=== PATIENT | male | born 1945 ===

== ENCOUNTER 2023-07-03 10:00 | Inpatient (IN) | payer OTHER ==
[~2023-07-03] VITALS: Ht 152.4 cm; Wt 74.8 kg
[2023-07-06] MEDS ORDERED: MILLIPRED5 MG (14:56)
[2023-07-06] MEDS ORDERED: TAMS0.4C (14:56)
[2023-07-06] MEDS ORDERED: PROSCAR5 MG (14:57)
[2023-07-10] MEDS ORDERED: CEFTRIAXONE SODIUM 2,000 MG VIAL ONE (07:25)
[2023-07-10] MEDS ORDERED: METRONIDAZOLE/SODIUM CHLORIDE 500 MG/100 ML PIGGYBACK IV ONE ×3 (07:25→16:01)
[2023-07-10] MEDS ORDERED: PREDNISONE10 M2 (07:53)
[2023-07-10] MEDS ORDERED: RESTORIL30 MG (07:53)
[2023-07-10] MEDS ORDERED: PENTOXIFYLLINE400 MG (07:54)
[2023-07-10] MEDS ORDERED: CARVEDILOL3.125 M1 (07:54)
[2023-07-10] MEDS ORDERED: BUPIVACAINE HCL/PF 0.5% 30ML ML ONE (08:20)
[2023-07-10] MEDS ORDERED: LIDOCAINE HCL 1%/Epi 20ML VIAL IJ ONE ×2 (08:21→09:45)
[2023-07-10] MEDS ORDERED: BUPIVACAINE HCL 0.5% 50ML VIAL IJ ONE (09:45)
[2023-07-10] MEDS ORDERED: CEFTRIAXONE SODIUM 2,000 MG VIAL IV ONE (09:45)
[2023-07-10] MEDS ORDERED: RINGERS SOLUTION,LACTATED 1,000 ML IV SCH (11:00)
[2023-07-10] MEDS ORDERED: OxyCODONE HCL 5 MG TABLET (ROXICODONE) PO PRN (11:00)
[2023-07-10] MEDS ORDERED: MORPHINE SULFATE 4 MG/ML CARTRIDGE IV PRN (11:00)
[2023-07-10] MEDS ORDERED: ONDANSETRON HCL 2 MG/ML VIAL IV PRN (11:00)
[2023-07-10] MEDS ORDERED: LACTOBACILLUS ACIDOPHILUS 1 CAP CAP PO SCH (11:01)
[2023-07-10] MEDS ORDERED: TAMSULOSIN HCL 0.4 MG CAP PO SCH (11:01)
[2023-07-10] MEDS ORDERED: ACETAMINOPHEN 500 MG GEL..CAP PO SCH (12:00)
[2023-07-10] MEDS ORDERED: HYOSCYAMINE SULFATE 0.125 MG TAB.SUBL SL SCH (13:00)
[2023-07-10] MEDS ORDERED: HYOSCYAMINE SULFATE 0.125 MG TAB.SUBL ONE (16:00)
[2023-07-10] MEDS ORDERED: GABAPENTIN 300 MG CAPSULE PO ONE (16:00)
[2023-07-10] MEDS ORDERED: GABAPENTIN 300 MG CAPSULE PO SCH (17:00)
[2023-07-10] MEDS ORDERED: LEVALBUTEROL HCL 0.63 MG/3 ML SOLUTION IH SCH (17:00)
[2023-07-10] MEDS ORDERED: METRONIDAZOLE/SODIUM CHLORIDE 500 MG/100 ML PIGGYBACK IV SCH (17:00)
[2023-07-10] MEDS ORDERED: LEVALBUTEROL HCL 0.63 MG/3 ML SOLUTION IH ONE (17:08)
[2023-07-10] MEDS ORDERED: ENALAPRILAT DIHYDRATE 1.25 MG/ML VIAL IV ONE (18:26)
[2023-07-10] MEDS ORDERED: ACETAMINOPHEN 500 MG GEL..CAP PO ONE (19:00)
[2023-07-10] MEDS ORDERED: CIPROFLOXACIN IN 5 % DEXTROSE 400 MG/200 ML PIGGYBAG IV SCH (21:00)
[2023-07-10] MEDS ORDERED: FAMOTIDINE/PF 20 MG/2 ML VIAL IV PUSH SCH (21:00)
[2023-07-11 06:47] LABS: HEMATOCRIT 42.5 % (39.0-48.0); MEAN CELL VOLUME 88.3 fL (80.0-100.00); MEAN CORPUSCULAR HGB CONC 32.8 g/dl (32.0-36.0); PLATELET COUNT 154 K/uL (150-450); RED BLOOD COUNT 4.82 M/uL (4.00-6.00); RED CELL DISTRIBUTION WIDTH 14.4 % (11.5-14.5)
[2023-07-11 07:41] LABS: ALBUMIN 2.7 gm/dL (3.4-5.0); CALCIUM 8.2 mg/dL (8.5-10.1); GFR 72.46; MAGNESIUM 1.8 mg/dL (1.8-2.4); PHOSPHOROUS 3.5 mg/dL (2.5-4.9); POTASSIUM 5.49 mEq/L (3.5-5.1)
[2023-07-11] MEDS ORDERED: ENOXAPARIN SODIUM 40 MG/0.4 ML SYRINGE SUBCUTANEO SCH (17:00)
[2023-07-12 07:38] LABS: ALBUMIN 2.4 gm/dL (3.4-5.0); CALCIUM 8.7 mg/dL (8.5-10.1); CREATININE SERUM 0.78 mg/dL (0.70-1.30); GFR 96.51; MAGNESIUM 2.3 mg/dL (1.8-2.4); PHOSPHOROUS 2.1 mg/dL (2.5-4.9); POTASSIUM 5.11 mEq/L (3.5-5.1)
[2023-07-12 08:59] LABS: HEMATOCRIT 38.1 % (39.0-48.0); HEMOGLOBIN 12.7 g/dL (13-16.00); MEAN CELL VOLUME 86.7 fL (80.0-100.00); MEAN CORPUSCULAR HEMOGLOBIN 28.8 pg (27.00-32.0); MEAN CORPUSCULAR HGB CONC 33.3 g/dl (32.0-36.0); RED CELL DISTRIBUTION WIDTH 14.6 % (11.5-14.5)
[2023-07-12] MEDS ORDERED: ENOXAPARIN SODIUM 40 MG/0.4 ML SYRINGE SUBCUTANEO SCH (09:00)
[2023-07-12 09:09] LABS: PLATELET COUNT 120 K/uL (150-450)
[2023-07-12 12:43] LABS: ABG PH 7.448 (7.35-7.45); ABG pCO2 44.4 mmHg (35-45)
[2023-07-12 12:44] LABS: ABG PO2 70.3 mmHg (80-100); BASE EXCESS 5.2 mmol/l; SaO2 94.9 %; Tco2 31.4 mmol/l; o2 21 %
[2023-07-12 12:45] LABS: allen test SATISFACTORY; puncture site RADIAL LEFT
[2023-07-12] MEDS ORDERED: LEVALBUTEROL HCL 0.63 MG/3 ML SOLUTION IH SCH (17:00)
[2023-07-12] MEDS ORDERED: LORazepam 0.5 MG TABLET PO ONE (23:00)
[2023-07-13 07:49] LABS: HEMATOCRIT 36.6 % (39.0-48.0); HEMOGLOBIN 12.1 g/dL (13-16.00); MEAN CELL VOLUME 86.1 fL (80.0-100.00); MEAN CORPUSCULAR HEMOGLOBIN 28.5 pg (27.00-32.0); MEAN CORPUSCULAR HGB CONC 33.1 g/dl (32.0-36.0); PLATELET COUNT 153 K/uL (150-450); RED BLOOD COUNT 4.25 M/uL (4.00-6.00); RED CELL DISTRIBUTION WIDTH 14.4 % (11.5-14.5)
[2023-07-13 08:17] LABS: ALBUMIN 2.3 gm/dL (3.4-5.0); BILIRUBIN TOTAL 0.85 mg/dL (0.3-1.2); CALCIUM 9.2 mg/dL (8.5-10.1); CREATININE SERUM 0.81 mg/dL (0.70-1.30); GFR 92.4; GLOBULINA 2.9 G/DL (2.4-3.5); POTASSIUM 3.57 mEq/L (3.5-5.1); TOTAL PROTEIN 5.2 gm/dL (6.4-8.2)
[2023-07-13] MEDS ORDERED: PANTOPRAZOLE SODIUM 40 MG/VIAL VIAL IV PUSH STA ×2 (11:23)
[2023-07-13] MEDS ORDERED: CARVEDILOL 3.125 MG TABLET PO SCH (13:12)
[2023-07-13] MEDS ORDERED: FINASTERIDE 5 MG TABLET PO SCH (13:13)
[2023-07-13] MEDS ORDERED: FUROsemide 20 MG/2 ML VIAL IV SCH (13:14)
[2023-07-13] MEDS ORDERED: METHYLPREDNISOLONE SOD SUCC 40 MG VIAL IV SCH (15:47)
[2023-07-13] MEDS ORDERED: PANTOPRAZOLE SODIUM 40 MG/VIAL VIAL IV PUSH SCH (21:00)
[2023-07-13] MEDS ORDERED: TEMAZEPAM 15 MG CAPSULE PO SCH (21:00)
[2023-07-14 06:39] LABS: ABG PH 7.433 (7.35-7.45); ABG pCO2 48.2 mmHg (35-45); BASE EXCESS 6.1 mmol/l; BICARBONATE 31.5 mmol/l (23-25); SaO2 98.9 %
[2023-07-14 06:44] LABS: allen test SATISFACTORY; o2 50 %; puncture site RADIAL RIGHT
[2023-07-14] MEDS ORDERED: PIPERACILLIN/TAZOBACTAM SODIUM 3.375 GM VIAL IV SCH (06:56)
[2023-07-14 07:29] LABS: HEMATOCRIT 34.5 % (39.0-48.0); HEMOGLOBIN 11.3 g/dL (13-16.00); MEAN CELL VOLUME 87.4 fL (80.0-100.00); MEAN CORPUSCULAR HEMOGLOBIN 28.7 pg (27.00-32.0); MEAN CORPUSCULAR HGB CONC 32.8 g/dl (32.0-36.0); PLATELET COUNT 169 K/uL (150-450); RED BLOOD COUNT 3.95 M/uL (4.00-6.00); RED CELL DISTRIBUTION WIDTH 14.6 % (11.5-14.5)
[2023-07-14 08:22] LABS: ALBUMIN 2.2 gm/dL (3.4-5.0); BILIRUBIN TOTAL 0.93 mg/dL (0.3-1.2); CALCIUM 8.6 mg/dL (8.5-10.1); CREATININE SERUM 0.76 mg/dL (0.70-1.30); GFR 99.45; MAGNESIUM 2.4 mg/dL (1.8-2.4); PHOSPHOROUS 3.3 mg/dL (2.5-4.9); POTASSIUM 3.6 mEq/L (3.5-5.1); TOTAL PROTEIN 5.2 gm/dL (6.4-8.2)
[2023-07-14] MEDS ORDERED: LORazepam 2 MG/ML VIAL IV SCH (10:14)
[2023-07-14 10:50] LABS: ABG PH 7.536 (7.35-7.45); ABG PO2 188.2 mmHg (80-100); ABG pCO2 34.7 mmHg (35-45); BASE EXCESS 6.3 mmol/l; BICARBONATE 28.8 mmol/l (23-25); SaO2 99.8 %; Tco2 29.8 mmol/l
[2023-07-14 10:51] LABS: allen test SATISFACTORY; o2 50 %; puncture site RADIAL RIGHT
[2023-07-14] MEDS ORDERED: PROPOFOL 100 ML IV SCH (13:15)
[2023-07-15 06:54] LABS: HEMATOCRIT 30.5 % (39.0-48.0); HEMOGLOBIN 10.2 g/dL (13-16.00); MEAN CELL VOLUME 86.6 fL (80.0-100.00); MEAN CORPUSCULAR HEMOGLOBIN 28.9 pg (27.00-32.0); MEAN CORPUSCULAR HGB CONC 33.4 g/dl (32.0-36.0); PLATELET COUNT 137 K/uL (150-450); RED BLOOD COUNT 3.52 M/uL (4.00-6.00); RED CELL DISTRIBUTION WIDTH 14.3 % (11.5-14.5)
[2023-07-15 07:23] LABS: BILIRUBIN TOTAL 1.08 mg/dL (0.3-1.2); CALCIUM 8.3 mg/dL (8.5-10.1); CREATININE SERUM 0.71 mg/dL (0.70-1.30); GFR 107.58; GLOBULINA 2.8 G/DL (2.4-3.5); MAGNESIUM 2.3 mg/dL (1.8-2.4); PHOSPHOROUS 2.6 mg/dL (2.5-4.9); TOTAL PROTEIN 4.8 gm/dL (6.4-8.2)
[2023-07-15 07:31] LABS: POTASSIUM 2.7 mEq/L (3.5-5.1)
[2023-07-15 08:46] LABS: ABG PH 7.444 (7.35-7.45); ABG PO2 135.5 mmHg (80-100); ABG pCO2 50.4 mmHg (35-45); BASE EXCESS 8.1 mmol/l; BICARBONATE 33.7 mmol/l (23-25); SaO2 99.2 %; Tco2 35.3 mmol/l
[2023-07-15 08:47] LABS: ABG PH 7.402 (7.35-7.45); ABG pCO2 58.6 mmHg (35-45)
[2023-07-15 08:47] LABS: allen test SATISFACTORY; o2 50 %; puncture site RADIAL RIGHT
[2023-07-15 08:48] LABS: ABG PO2 91.6 mmHg (80-100); BASE EXCESS 8.6 mmol/l; BICARBONATE 35.6 mmol/l (23-25); SaO2 97.3 %; Tco2 37.4 mmol/l; o2 40 %
[2023-07-15 08:49] LABS: allen test SATISFACTORY; puncture site RADIAL LEFT
[2023-07-15] MEDS ORDERED: POTASSIUM CHLORIDE IN WATER 40 MEQ/100 ML PIGGYBAG IV SCH (09:03)
[2023-07-15] MEDS ORDERED: IPRATROPIUM BROMIDE 0.5 MG/2.5 ML AMPUL.NEB IH SCH (10:24)
[2023-07-15] MEDS ORDERED: METHYLPREDNISOLONE SOD SUCC 40 MG VIAL IV SCH (13:00)
[2023-07-16] MEDS ORDERED: PANTOPRAZOLE SODIUM 40 MG/VIAL VIAL IV PUSH SCH (05:31)
[2023-07-16] MEDS ORDERED: CHLORHEXIDINE GLUCONATE 15ML BRUSH KIT MM SCH (05:32)
[2023-07-16] MEDS ORDERED: POLYVINYL ALCOHOL 15 ML DROPS OP SCH (05:32)
[2023-07-16] MEDS ORDERED: RACEPINEPHRINE HCL 0.5 ML AMPUL IH ONE (08:34)
[2023-07-16 09:27] LABS: ABG PH 7.476 (7.35-7.45); ABG pCO2 45.2 mmHg (35-45)
[2023-07-16 09:28] LABS: BASE EXCESS 7.9 mmol/l; BICARBONATE 32.6 mmol/l (23-25); SaO2 97.8 %; allen test SATISFACTORY; o2 40 %; puncture site RADIAL LEFT
[2023-07-16 09:55] LABS: ABG PH 7.497 (7.35-7.45); ABG PO2 64.7 mmHg (80-100); ABG pCO2 42.6 mmHg (35-45)
[2023-07-16 09:56] LABS: BASE EXCESS 8.2 mmol/l; BICARBONATE 32.3 mmol/l (23-25); SaO2 94.6 %; Tco2 33.6 mmol/l; allen test SATISFACTORY; o2 35 %; puncture site RADIAL LEFT
[2023-07-16] MEDS ORDERED: MEPERIDINE HCL/PF 25 MG/ML VIAL IV PRN (10:15)
[2023-07-16] MEDS ORDERED: MEROPENEM 500 MG/VIAL VIAL IV SCH (12:03)
[2023-07-16] MEDS ORDERED: AA 5 %/CALCIUM/LYTES/DEXT 20 % 2,000 ML CENTRAL SCH (17:00)
[2023-07-17] MEDS ORDERED: DEXTROSE 50 % IN WATER 0.5 G/ML DISP.SYRIN IV PRN (07:00)
[2023-07-17] MEDS ORDERED: INSULIN LISPRO 1,000 UNIT/10 ML UNITS SUBCUTANEO PRN ×2 (07:00→20:15)
[2023-07-17] MEDS ORDERED: METHYLPREDNISOLONE SOD SUCC 40 MG VIAL IV SCH (09:00)
[2023-07-17] MEDS ORDERED: FLUCONAZOLE IN NACL,ISO-OSM 400 MG/200 ML PIGGYBAG IV ONE (12:30)
[2023-07-17] MEDS ORDERED: VANCOMYCIN HCL 1,000 MG VIAL IV SCH (17:00)
[2023-07-17] MEDS ORDERED: INSULIN NPH HUMAN ISOPHANE 1,000 UNITS/10 ML UNITS SUBCUTANEO SCH (21:00)
[2023-07-18 07:40] LABS: HEMATOCRIT 34.6 % (39.0-48.0); HEMOGLOBIN 11.2 g/dL (13-16.00); MEAN CELL VOLUME 88.9 fL (80.0-100.00); MEAN CORPUSCULAR HEMOGLOBIN 28.9 pg (27.00-32.0); MEAN CORPUSCULAR HGB CONC 32.5 g/dl (32.0-36.0); PLATELET COUNT 157 K/uL (150-450); RED BLOOD COUNT 3.89 M/uL (4.00-6.00); RED CELL DISTRIBUTION WIDTH 14.7 % (11.5-14.5)
[2023-07-18 08:03] LABS: ALBUMIN 1.6 gm/dL (3.4-5.0); BILIRUBIN TOTAL 0.24 mg/dL (0.3-1.2); CALCIUM 8.5 mg/dL (8.5-10.1); CREATININE SERUM 0.52 mg/dL (0.70-1.30); GFR 154.1; GLOBULINA 3.1 G/DL (2.4-3.5); MAGNESIUM 2.7 mg/dL (1.8-2.4); PHOSPHOROUS 2.6 mg/dL (2.5-4.9); POTASSIUM 3.93 mEq/L (3.5-5.1); TOTAL PROTEIN 4.7 gm/dL (6.4-8.2)
[2023-07-18 08:08] LABS: C-REACTIVE PROTEIN 33.3 MG/DL (0.00-0.29)
[2023-07-18] MEDS ORDERED: FLUCONAZOLE IN NACL,ISO-OSM 200 MG/100 ML PIGGYBAG IV SCH (12:00)
[2023-07-18] MEDS ORDERED: INSULIN NPH HUMAN ISOPHANE 1,000 UNITS/10 ML UNITS SUBCUTANEO SCH (21:00)
[2023-07-20] MEDS ORDERED: DIATRIZOATE MEGLUMINE, SODIUM 30 ML BOTTLE PO ONE (06:00)
[2023-07-20 06:32] LABS: HEMATOCRIT 31.3 % (39.0-48.0); HEMOGLOBIN 10.4 g/dL (13-16.00); MEAN CELL VOLUME 86.8 fL (80.0-100.00); MEAN CORPUSCULAR HEMOGLOBIN 28.7 pg (27.00-32.0); MEAN CORPUSCULAR HGB CONC 33.1 g/dl (32.0-36.0); PLATELET COUNT 176 K/uL (150-450); RED CELL DISTRIBUTION WIDTH 14.5 % (11.5-14.5)
[2023-07-20 06:50] LABS: INR 1.02; PARTIAL THROMBOPLASTIN TIME 27.5 SECONDS (22.0-34.0); PROTHROMBIN TIME 10.7 SECONDS (9.0-11.5)
[2023-07-20 07:12] LABS: ALBUMIN 1.5 gm/dL (3.4-5.0); ALKALINE PHOSPHATASE 89 U/L (50-136); ALT/SGPT 89 U/L (12-78); ANION GAP 3 (10.0-20.0); AST/SGOT 106 U/L (15-37); BILIRUBIN TOTAL 0.35 mg/dL (0.3-1.2); BILIRUBIN,CONJUGATED < 0.10 mg/dL (0.0-0.2); BILIRUBIN,UNCONJUGATED 0.25 mg/dL (0.0-0.6); BLOOD UREA NITROGEN 32 mg/dL (7-18); BUN CREA RATIO 65 (7.0-25.0); CARBON DIOXIDE 39 mEq/L (21-32); CHLORIDE 106 mmol/L (98-107); CREATININE SERUM 0.49 mg/dL (0.70-1.30); GFR 165.04; GLOBULINA 3.3 G/DL (2.4-3.5); POTASSIUM 3.81 mEq/L (3.5-5.1); SODIUM 144 mmol/L (136-145); TOTAL PROTEIN 4.8 gm/dL (6.4-8.2)
[2023-07-20 07:34] LABS: GLUCOSE FASTING 256 mg/dL (65-100); LDL 49 mg/dl (0-130); OSMOLALITY SERUM 302 MOSM/KG (275-295); VLDL 60 (0-39)
[2023-07-20 07:35] LABS: CHOLESTEROL 120 mg/dL (0-200); TRIGLYCERIDES 303 mg/dL (0-150)
[2023-07-20] MEDS ORDERED: PREDNISONE 10 MG TABLET PO SCH (09:00)
[2023-07-20 09:36] LABS: HDL 10 mg/dl (40-60)
[2023-07-20] MEDS ORDERED: VANCOMYCIN HCL 5 MG/ML REDILUIDO IV SCH (17:00)
[2023-07-21] MEDS ORDERED: METHYLPREDNISOLONE SOD SUCC 40 MG VIAL IV SCH (09:00)
[2023-07-21] MEDS ORDERED: INSULIN NPH HUM/REG INSULIN HM 1,000 UNIT/10 ML UNITS SUBCUTANEO SCH (09:00)
[2023-07-22 05:14] LABS: PH,URINE 7.5 (5.0-8.0); URINE APPEARANCE Clear; URINE BILIRRUBIN Negative (NEGATIVE); URINE BLOOD Small; URINE COLOR Yellow; URINE LEUKOCYTE Negative; URINE NITRATE Negative; URINE PROTEIN 30 (NEGATIVE); URINE UROBILINOGEN 0.2 E.U./dl
[2023-07-22 05:15] LABS: URINE BACTERIA 36.5 uL (0.0-1933); URINE EPITHELIAL CELLS 5.8 uL (0.0-38.8); URINE RBC 139.8 uL (0.0-20.8); URINE WBC 21.9 uL (0.0-23.2)
[2023-07-22 05:16] LABS: URINE GLUCOSE >=1000 MG/DL (NEGATIVE)
[2023-07-22 05:20] LABS: HEMATOCRIT 33.8 % (39.0-48.0); MEAN CELL VOLUME 87.5 fL (80.0-100.00); MEAN CORPUSCULAR HEMOGLOBIN 28.4 pg (27.00-32.0); MEAN CORPUSCULAR HGB CONC 32.5 g/dl (32.0-36.0); PLATELET COUNT 207 K/uL (150-450); RED BLOOD COUNT 3.86 M/uL (4.00-6.00); RED CELL DISTRIBUTION WIDTH 14.3 % (11.5-14.5)
[2023-07-22 05:46] LABS: ALBUMIN 1.5 gm/dL (3.4-5.0); BILIRUBIN TOTAL 0.51 mg/dL (0.3-1.2); CALCIUM 8.4 mg/dL (8.5-10.1); CREATININE SERUM 0.56 mg/dL (0.70-1.30); GFR 141.47; GLOBULINA 3.6 G/DL (2.4-3.5); MAGNESIUM 2.5 mg/dL (1.8-2.4); PHOSPHOROUS 2.5 mg/dL (2.5-4.9); POTASSIUM 4.16 mEq/L (3.5-5.1); TOTAL PROTEIN 5.1 gm/dL (6.4-8.2)
[2023-07-22 05:47] LABS: C-REACTIVE PROTEIN 21.4 MG/DL (0.00-0.29)
[2023-07-22] MEDS ORDERED: INSULIN NPH HUM/REG INSULIN HM 1,000 UNIT/10 ML UNITS SUBCUTANEO SCH (09:00)
[2023-07-23] MEDS ORDERED: INSULIN NPH HUM/REG INSULIN HM 1,000 UNIT/10 ML UNITS SUBCUTANEO SCH (09:57)
[2023-07-23 19:48] LABS: MONONUCLEAR 58 %; POLYMORPHONUCLEAR 42 %; SYNOVIAL FLUID APPEARANCE TURBID; SYNOVIAL FLUID COLOR RED-BLOODY
[2023-07-23] MEDS ORDERED: INSULIN NPH HUMAN ISOPHANE 1,000 UNITS/10 ML UNITS SUBCUTANEO SCH (21:00)
[2023-07-24] MEDS ORDERED: VANCOMYCIN HCL 125 MG/7.5 ML BLIST.PACK PO SCH
[2023-07-24 06:32] LABS: HEMATOCRIT 32.4 % (39.0-48.0); HEMOGLOBIN 10.8 g/dL (13-16.00); MEAN CELL VOLUME 84.8 fL (80.0-100.00); MEAN CORPUSCULAR HEMOGLOBIN 28.3 pg (27.00-32.0); MEAN CORPUSCULAR HGB CONC 33.4 g/dl (32.0-36.0); PLATELET COUNT 242 K/uL (150-450); RED BLOOD COUNT 3.82 M/uL (4.00-6.00); RED CELL DISTRIBUTION WIDTH 14.3 % (11.5-14.5)
[2023-07-24 07:09] LABS: ALBUMIN 1.5 gm/dL (3.4-5.0); BILIRUBIN TOTAL 0.9 mg/dL (0.3-1.2); C-REACTIVE PROTEIN 8.74 MG/DL (0.00-0.29); CALCIUM 7.6 mg/dL (8.5-10.1); CREATININE SERUM 0.52 mg/dL (0.70-1.30); GFR 154.1; GLOBULINA 3.2 G/DL (2.4-3.5); MAGNESIUM 2.1 mg/dL (1.8-2.4); PHOSPHOROUS 2.5 mg/dL (2.5-4.9); POTASSIUM 4.58 mEq/L (3.5-5.1); TOTAL PROTEIN 4.7 gm/dL (6.4-8.2)
[2023-07-24] MEDS ORDERED: INSULIN NPH HUM/REG INSULIN HM 1,000 UNIT/10 ML UNITS SUBCUTANEO SCH (09:00)
[2023-07-24] MEDS ORDERED: INSULIN NPH HUMAN ISOPHANE 1,000 UNITS/10 ML UNITS SUBCUTANEO SCH (21:00)
[2023-07-25] MEDS ORDERED: INSULIN NPH HUMAN ISOPHANE 1,000 UNITS/10 ML UNITS SUBCUTANEO SCH (21:00)
[2023-07-26] MEDS ORDERED: INSULIN NPH HUM/REG INSULIN HM 1,000 UNIT/10 ML UNITS SUBCUTANEO SCH (09:00)
[2023-07-26] MEDS ORDERED: PREDNISONE 5 MG TABLET PO SCH (09:00)
[2023-07-27 07:15] LABS: ERYTHROCYTE SEDIMENTATION RATE 27 mm/hr; HEMATOCRIT 36.6 % (39.0-48.0); HEMOGLOBIN 11.8 g/dL (13-16.00); MEAN CELL VOLUME 86.2 fL (80.0-100.00); MEAN CORPUSCULAR HEMOGLOBIN 27.9 pg (27.00-32.0); MEAN CORPUSCULAR HGB CONC 32.3 g/dl (32.0-36.0); PLATELET COUNT 272 K/uL (150-450); RED BLOOD COUNT 4.24 M/uL (4.00-6.00)
[2023-07-27 07:38] LABS: INR 1.04; PARTIAL THROMBOPLASTIN TIME 26.2 SECONDS (22.0-34.0); PROTHROMBIN TIME 10.9 SECONDS (9.0-11.5)
[2023-07-27 07:46] LABS: ALBUMIN 1.7 gm/dL (3.4-5.0); BILIRUBIN TOTAL 0.55 mg/dL (0.3-1.2); BILIRUBIN,CONJUGATED 0.17 mg/dL (0.0-0.2); BILIRUBIN,UNCONJUGATED 0.38 mg/dL (0.0-0.6); CALCIUM 8.3 mg/dL (8.5-10.1); CHOL HDL RATIO 7.3 (0-5.0); CREATININE SERUM 0.65 mg/dL (0.70-1.30); GFR 119.11; GLOBULINA 3.5 G/DL (2.4-3.5); MAGNESIUM 2.3 mg/dL (1.8-2.4); POTASSIUM 4.91 mEq/L (3.5-5.1); TOTAL PROTEIN 5.2 gm/dL (6.4-8.2)
[2023-07-27 07:49] LABS: C-REACTIVE PROTEIN 4.56 MG/DL (0.00-0.29)
[2023-07-27 09:03] LABS: UREA CLEARANCE 32.8 ML/MIN
[2023-07-27] MEDS ORDERED: INSULIN NPH HUM/REG INSULIN HM 1,000 UNIT/10 ML UNITS SUBCUTANEO SCH (09:12)
[2023-07-27] MEDS ORDERED: INSULIN NPH HUMAN ISOPHANE 1,000 UNITS/10 ML UNITS SUBCUTANEO SCH (21:00)
[2023-07-28] MEDS ORDERED: MIDAZOLAM HCL 2 MG/2 ML VIAL IV PUSH ONE (16:15)
[2023-07-28] MEDS ORDERED: fentaNYL CITRATE 50 MCG/ML AMPUL IV PUSH ONE (16:15)
[2023-07-28] MEDS ORDERED: INSULIN NPH HUMAN ISOPHANE 1,000 UNITS/10 ML UNITS SUBCUTANEO SCH (21:00)
[2023-07-29 06:52] LABS: HEMATOCRIT 32.5 % (39.0-48.0); HEMOGLOBIN 10.8 g/dL (13-16.00); MEAN CELL VOLUME 85.1 fL (80.0-100.00); MEAN CORPUSCULAR HEMOGLOBIN 28.2 pg (27.00-32.0); MEAN CORPUSCULAR HGB CONC 33.2 g/dl (32.0-36.0); PLATELET COUNT 203 K/uL (150-450); RED BLOOD COUNT 3.82 M/uL (4.00-6.00); RED CELL DISTRIBUTION WIDTH 14.1 % (11.5-14.5)
[2023-07-29 07:05] LABS: ALBUMIN 1.7 gm/dL (3.4-5.0); BILIRUBIN TOTAL 0.44 mg/dL (0.3-1.2); CALCIUM 7.8 mg/dL (8.5-10.1); CREATININE SERUM 0.54 mg/dL (0.70-1.30); GFR 147.53; GLOBULINA 3.5 G/DL (2.4-3.5); MAGNESIUM 2.1 mg/dL (1.8-2.4); PHOSPHOROUS 2.7 mg/dL (2.5-4.9); POTASSIUM 4.45 mEq/L (3.5-5.1); TOTAL PROTEIN 5.2 gm/dL (6.4-8.2)
[2023-07-29 07:07] LABS: C-REACTIVE PROTEIN 10.8 MG/DL (0.00-0.29)
[2023-07-29] MEDS ORDERED: HALOPERIDOL LACTATE 5 MG/ML AMPUL IM ONE ×2 (22:15→22:30)
[2023-07-29] MEDS ORDERED: HALOPERIDOL LACTATE 5 MG/ML AMPUL ONE (22:27)
[2023-07-29] MEDS ORDERED: DIPHENHYDRAMINE HCL 50 MG/ML VIAL 1ML IV ONE (22:30)
[2023-07-30] MEDS ORDERED: DIATRIZOATE MEGLUMINE, SODIUM 30 ML BOTTLE PO STA (08:36)
[2023-07-31] MEDS ORDERED: fentaNYL CITRATE 50 MCG/ML AMPUL IV PUSH ONE (18:00)
[2023-07-31] MEDS ORDERED: MIDAZOLAM HCL 2 MG/2 ML VIAL IV PUSH ONE (18:00)
[2023-07-31] MEDS ORDERED: NALOXONE HCL 0.4 MG/ML AMPUL IJ ONE (18:45)
[2023-07-31 19:28] LABS: ABG PH 7.391 (7.35-7.45); ABG PO2 112.3 mmHg (80-100); ABG pCO2 48.9 mmHg (35-45); BASE EXCESS 3.1 mmol/l; SaO2 98.3 %; Tco2 30.5 mmol/l; allen test SATISFACTORY; o2 100 %; puncture site RADIAL RIGHT
[2023-07-31] MEDS ORDERED: NALOXONE HCL 0.4 MG/ML AMPUL ONE (19:30)
[2023-07-31] MEDS ORDERED: NALOXONE HCL 0.4 MG/ML AMPUL IV STA (19:31)
[2023-07-31 20:07] LABS: HEMOGLOBIN 11.1 g/dL (13-16.00); MEAN CELL VOLUME 86.9 fL (80.0-100.00); MEAN CORPUSCULAR HEMOGLOBIN 29.2 pg (27.00-32.0); MEAN CORPUSCULAR HGB CONC 33.6 g/dl (32.0-36.0); PLATELET COUNT 172 K/uL (150-450); RED BLOOD COUNT 3.79 M/uL (4.00-6.00)
[2023-08-01 09:33] LABS: HEMATOCRIT 28.2 % (39.0-48.0); HEMOGLOBIN 9.4 g/dL (13-16.00); MEAN CELL VOLUME 85.6 fL (80.0-100.00); MEAN CORPUSCULAR HEMOGLOBIN 28.4 pg (27.00-32.0); MEAN CORPUSCULAR HGB CONC 33.2 g/dl (32.0-36.0); PLATELET COUNT 135 K/uL (150-450); RED CELL DISTRIBUTION WIDTH 14.2 % (11.5-14.5)
[2023-08-01 10:24] LABS: ALBUMIN 1.6 gm/dL (3.4-5.0); BILIRUBIN TOTAL 0.34 mg/dL (0.3-1.2); CALCIUM 7.8 mg/dL (8.5-10.1); CREATININE SERUM 0.57 mg/dL (0.70-1.30); GFR 138.61; GLOBULINA 3.3 G/DL (2.4-3.5); MAGNESIUM 2.2 mg/dL (1.8-2.4); PHOSPHOROUS 2.6 mg/dL (2.5-4.9); POTASSIUM 4.6 mEq/L (3.5-5.1); TOTAL PROTEIN 4.9 gm/dL (6.4-8.2)
[2023-08-01 10:25] LABS: C-REACTIVE PROTEIN 12.1 MG/DL (0.00-0.29)
[2023-08-03 06:58] LABS: HEMATOCRIT 28.7 % (39.0-48.0); HEMOGLOBIN 9.6 g/dL (13-16.00); MEAN CELL VOLUME 86.4 fL (80.0-100.00); MEAN CORPUSCULAR HEMOGLOBIN 28.8 pg (27.00-32.0); MEAN CORPUSCULAR HGB CONC 33.3 g/dl (32.0-36.0); PLATELET COUNT 130 K/uL (150-450); RED BLOOD COUNT 3.32 M/uL (4.00-6.00); RED CELL DISTRIBUTION WIDTH 13.7 % (11.5-14.5)
[2023-08-03 07:27] LABS: INR 1.1; PARTIAL THROMBOPLASTIN TIME 32.8 SECONDS (22.0-34.0); PROTHROMBIN TIME 11.5 SECONDS (9.0-11.5)
[2023-08-03 07:44] LABS: ALBUMIN 1.7 gm/dL (3.4-5.0); BILIRUBIN TOTAL 0.34 mg/dL (0.3-1.2); BILIRUBIN,CONJUGATED 0.12 mg/dL (0.0-0.2); BILIRUBIN,UNCONJUGATED 0.22 mg/dL (0.0-0.6); CALCIUM 8.2 mg/dL (8.5-10.1); CHOL HDL RATIO 6.8 (0-5.0); CREATININE SERUM 0.5 mg/dL (0.70-1.30); GFR 161.23; GLOBULINA 3.5 G/DL (2.4-3.5); MAGNESIUM 2.2 mg/dL (1.8-2.4); PHOSPHOROUS 2.6 mg/dL (2.5-4.9); POTASSIUM 4.68 mEq/L (3.5-5.1); TOTAL PROTEIN 5.2 gm/dL (6.4-8.2)
[2023-08-03 10:06] LABS: UREA CLEARANCE 39.5 ML/MIN
[2023-08-04] MEDS ORDERED: METRONIDAZOLE/SODIUM CHLORIDE 100 ML IV SCH (17:00)
[2023-08-04 19:05] LABS: ABG pCO2 46.1 mmHg (35-45)
[2023-08-04 19:06] LABS: ABG PO2 63.4 mmHg (80-100); BASE EXCESS 9.6 mmol/l; BICARBONATE 34.3 mmol/l (23-25); SaO2 94.3 %; Tco2 35.7 mmol/l; allen test SATISFACTORY; o2 21 %; puncture site RADIAL RIGHT
[2023-08-07 06:22] LABS: HEMATOCRIT 28.9 % (39.0-48.0); HEMOGLOBIN 9.6 g/dL (13-16.00); MEAN CORPUSCULAR HEMOGLOBIN 28.2 pg (27.00-32.0); MEAN CORPUSCULAR HGB CONC 33.2 g/dl (32.0-36.0); PLATELET COUNT 140 K/uL (150-450)
[2023-08-07 07:09] LABS: ALBUMIN 1.8 gm/dL (3.4-5.0); BILIRUBIN TOTAL 0.39 mg/dL (0.3-1.2); CALCIUM 8.1 mg/dL (8.5-10.1); CREATININE SERUM 0.61 mg/dL (0.70-1.30); GFR 128.17; GLOBULINA 3.4 G/DL (2.4-3.5); MAGNESIUM 1.9 mg/dL (1.8-2.4); PHOSPHOROUS 2.7 mg/dL (2.5-4.9); POTASSIUM 3.72 mEq/L (3.5-5.1); TOTAL PROTEIN 5.2 gm/dL (6.4-8.2)
[2023-08-07 07:10] LABS: C-REACTIVE PROTEIN 15.6 MG/DL (0.00-0.29)
[2023-08-07] MEDS ORDERED: DIATRIZOATE MEGLUMINE, SODIUM 30 ML BOTTLE RECTAL SCH (12:15)
[2023-08-07] MEDS ORDERED: DIATRIZOATE MEGLUMINE, SODIUM 30 ML BOTTLE PO ONE (13:15)
[2023-08-09 16:10] LABS: BILIRUBIN TOTAL 0.35 mg/dL (0.3-1.2); CHOL HDL RATIO 5.1 (0-5.0); CREATININE SERUM 0.63 mg/dL (0.70-1.30); GFR 123.49; GLOBULINA 3.5 G/DL (2.4-3.5); POTASSIUM 3.88 mEq/L (3.5-5.1); TOTAL PROTEIN 5.5 gm/dL (6.4-8.2)
[2023-08-09] MEDS ORDERED: AA 5 %/CALCIUM/LYTES/DEXT 20 % 2,000 ML CENTRAL SCH (17:00)
[2023-08-09] MEDS ORDERED: DEXTROSE 50 % IN WATER 0.5 G/ML DISP.SYRIN IV PRN (22:30)
[2023-08-09] MEDS ORDERED: INSULIN LISPRO 1,000 UNIT/10 ML UNITS SUBCUTANEO PRN (22:30)
[2023-08-11] MEDS ORDERED: fentaNYL CITRATE 50 MCG/ML AMPUL IV PUSH ONE (17:00)
[2023-08-12 08:02] LABS: HEMOGLOBIN 9.5 g/dL (13-16.00); MEAN CELL VOLUME 85.6 fL (80.0-100.00); MEAN CORPUSCULAR HGB CONC 32.7 g/dl (32.0-36.0); PLATELET COUNT 154 K/uL (150-450); RED BLOOD COUNT 3.39 M/uL (4.00-6.00); RED CELL DISTRIBUTION WIDTH 14.3 % (11.5-14.5)
[2023-08-12 08:26] LABS: CALCIUM 8.2 mg/dL (8.5-10.1); CREATININE SERUM 0.52 mg/dL (0.70-1.30); GFR 154.1; POTASSIUM 4.41 mEq/L (3.5-5.1)
[2023-08-15] MEDS ORDERED: PREDNISONE 5 MG TABLET PO SCH (09:00)
[2023-08-15 10:24] LABS: ALBUMIN 2.1 gm/dL (3.4-5.0); CALCIUM 8.9 mg/dL (8.5-10.1); CREATININE SERUM 0.64 mg/dL (0.70-1.30); GFR 121.27; PHOSPHOROUS 2.8 mg/dL (2.5-4.9)
[2023-08-15 10:27] LABS: POTASSIUM 5.94 mEq/L (3.5-5.1)
[2023-08-15 10:46] LABS: MEAN CELL VOLUME 84.9 fL (80.0-100.00); MEAN CORPUSCULAR HEMOGLOBIN 27.5 pg (27.00-32.0); MEAN CORPUSCULAR HGB CONC 32.3 g/dl (32.0-36.0); RED BLOOD COUNT 4.01 M/uL (4.00-6.00); RED CELL DISTRIBUTION WIDTH 14.6 % (11.5-14.5)
[2023-08-15 11:45] LABS: PLATELET COUNT 171 K/uL (150-450)
[2023-08-15] MEDS ORDERED: VITAMIN B COMPLEX/LYSINE 1 ML ML PO SCH (12:47)
[2023-08-15] MEDS ORDERED: AMINO ACIDS/PROTEIN HYDROLYS 30 ML BLIST.PACK PO SCH (12:52)
[2023-08-17 07:19] LABS: HEMATOCRIT 30.5 % (39.0-48.0); HEMOGLOBIN 10.2 g/dL (13-16.00); MEAN CELL VOLUME 84.8 fL (80.0-100.00); MEAN CORPUSCULAR HEMOGLOBIN 28.2 pg (27.00-32.0); MEAN CORPUSCULAR HGB CONC 33.3 g/dl (32.0-36.0); PLATELET COUNT 162 K/uL (150-450); RED CELL DISTRIBUTION WIDTH 14.4 % (11.5-14.5)
[2023-08-17 07:51] LABS: ALBUMIN 1.9 gm/dL (3.4-5.0); ALKALINE PHOSPHATASE 109 U/L (50-136); ALT/SGPT 7 U/L (12-78); ANION GAP 7 (10.0-20.0); AST/SGOT 17 U/L (15-37); BILIRUBIN TOTAL 0.15 mg/dL (0.3-1.2); BILIRUBIN,CONJUGATED < 0.10 mg/dL (0.0-0.2); BILIRUBIN,UNCONJUGATED 0.05 mg/dL (0.0-0.6); BLOOD UREA NITROGEN 21 mg/dL (7-18); BUN CREA RATIO 36 (7.0-25.0); CARBON DIOXIDE 33 mEq/L (21-32); CHLORIDE 103 mmol/L (98-107); CREATININE SERUM 0.59 mg/dL (0.70-1.30); GLOBULINA 3.6 G/DL (2.4-3.5); GLUCOSE FASTING 164 mg/dL (65-100); OSMOLALITY SERUM 284 MOSM/KG (275-295); POTASSIUM 4.26 mEq/L (3.5-5.1); SODIUM 139 mmol/L (136-145); TOTAL PROTEIN 5.5 gm/dL (6.4-8.2)
[2023-08-17 12:15] LABS: INR 1.13; PARTIAL THROMBOPLASTIN TIME 29.4 SECONDS (22.0-34.0); PROTHROMBIN TIME 11.8 SECONDS (9.0-11.5)
[2023-08-17 13:16] LABS: UREA CLEARANCE 22.9 ML/MIN
[2023-08-17] MEDS ORDERED: IPRATROPIUM/ALBUTEROL SULFATE 3 ML AMPUL.NEB IH SCH (21:00)
[2023-08-19] MEDS ORDERED: LACTOBACILLUS ACIDOPHILUS 1 CAP CAP PO SCH (21:00)
[2023-08-20 05:44] LABS: HEMATOCRIT 28.3 % (39.0-48.0); HEMOGLOBIN 9.4 g/dL (13-16.00); MEAN CELL VOLUME 83.9 fL (80.0-100.00); MEAN CORPUSCULAR HEMOGLOBIN 27.9 pg (27.00-32.0); MEAN CORPUSCULAR HGB CONC 33.3 g/dl (32.0-36.0); PLATELET COUNT 168 K/uL (150-450); RED BLOOD COUNT 3.38 M/uL (4.00-6.00); RED CELL DISTRIBUTION WIDTH 14.8 % (11.5-14.5)
[2023-08-20 06:15] LABS: BILIRUBIN TOTAL 0.25 mg/dL (0.3-1.2); CALCIUM 8.1 mg/dL (8.5-10.1); CREATININE SERUM 0.54 mg/dL (0.70-1.30); GFR 147.53; GLOBULINA 3.4 G/DL (2.4-3.5); MAGNESIUM 2.1 mg/dL (1.8-2.4); PHOSPHOROUS 3.3 mg/dL (2.5-4.9); POTASSIUM 4.11 mEq/L (3.5-5.1); TOTAL PROTEIN 5.4 gm/dL (6.4-8.2)
[2023-08-20 07:05] LABS: C-REACTIVE PROTEIN 2.09 MG/DL (0.00-0.29)
[2023-08-20] MEDS ORDERED: DIATRIZOATE MEGLUMINE, SODIUM 30 ML BOTTLE PO STA (08:18)
[2023-08-20] MEDS ORDERED: AA 4.25%/CAL/LYTES/DEXT 5% 1,000 ML PERIFERAL SCH (17:00)
[2023-08-24 06:29] LABS: HEMATOCRIT 29.4 % (39.0-48.0); HEMOGLOBIN 9.7 g/dL (13-16.00); MEAN CORPUSCULAR HEMOGLOBIN 27.5 pg (27.00-32.0); MEAN CORPUSCULAR HGB CONC 33.1 g/dl (32.0-36.0); PLATELET COUNT 217 K/uL (150-450); RED BLOOD COUNT 3.55 M/uL (4.00-6.00); RED CELL DISTRIBUTION WIDTH 15.3 % (11.5-14.5)
[2023-08-24 07:06] LABS: INR 1.18; PARTIAL THROMBOPLASTIN TIME 32.4 SECONDS (22.0-34.0); PROTHROMBIN TIME 12.2 SECONDS (9.0-11.5)
[2023-08-24 07:20] LABS: ALBUMIN 2.1 gm/dL (3.4-5.0); ALKALINE PHOSPHATASE 114 U/L (50-136); ALT/SGPT 7 U/L (12-78); ANION GAP 10 (10.0-20.0); AST/SGOT 18 U/L (15-37); BILIRUBIN TOTAL 0.47 mg/dL (0.3-1.2); BILIRUBIN,CONJUGATED < 0.10 mg/dL (0.0-0.2); BILIRUBIN,UNCONJUGATED 0.37 mg/dL (0.0-0.6); BLOOD UREA NITROGEN 22 mg/dL (7-18); BUN CREA RATIO 35 (7.0-25.0); CALCIUM 8.3 mg/dL (8.5-10.1); CARBON DIOXIDE 31 mEq/L (21-32); CHLORIDE 103 mmol/L (98-107); CHOL HDL RATIO 5.7 (0-5.0); CHOLESTEROL 132 mg/dL (0-200); CREATININE SERUM 0.62 mg/dL (0.70-1.30); GFR 125.79; GLOBULINA 3.5 G/DL (2.4-3.5); GLUCOSE FASTING 86 mg/dL (65-100); HDL 23 mg/dl (40-60); LDL 70 mg/dl (0-130); OSMOLALITY SERUM 282 MOSM/KG (275-295); POTASSIUM 3.57 mEq/L (3.5-5.1); SODIUM 140 mmol/L (136-145); TOTAL PROTEIN 5.6 gm/dL (6.4-8.2); TRIGLYCERIDES 194 mg/dL (0-150); VLDL 38 (0-39)
[2023-08-24 09:40] LABS: UREA CLEARANCE 21.7 ML/MIN
[2023-08-26] MEDS ORDERED: TAMS0.4C PO (15:11)
== END 2023-08-26 17:42 | disposition home or self-care (01) | DRG 329 ==
LOC: O/R 07-10 05:50 → SURH 07-10 10:45 → ICU 07-14 12:58 → MEDI 07-14 15:07 → ICU 07-14 15:17 → SURH 07-24 20:32
PROVIDERS: Internal Medicine; Internal Medicine Infectious Disease; Surgery; ADMIT Surgery; ATTEND Surgery
PROC: 0DBP4ZZ Excision of Rectum, Percutaneous Endoscopic Approach (ICD-10-PCS; 2023-07-10)
PROC: 0DBE4ZZ Excision of Large Intestine, Percutaneous Endoscopic Approach (ICD-10-PCS; 2023-07-10)
PROC: 0WQF4ZZ Repair Abdominal Wall, Percutaneous Endoscopic Approach (ICD-10-PCS; 2023-07-10)
PROC: 0DNW4ZZ Release Peritoneum, Percutaneous Endoscopic Approach (ICD-10-PCS; 2023-07-10)
PROC: 0DJD8ZZ Inspection of Lower Intestinal Tract, Via Natural or Artificial Opening Endoscopic (ICD-10-PCS; 2023-07-10)
PROC: 0DTN4ZZ Resection of Sigmoid Colon, Percutaneous Endoscopic Approach (ICD-10-PCS; principal; 2023-07-10 11:00)
PROC: 4A12X4Z Monitoring of Cardiac Electrical Activity, External Approach (ICD-10-PCS; 2023-07-12)
PROC: B24BZZZ Ultrasonography of Heart with Aorta (ICD-10-PCS; 2023-07-13)
PROC: 0BH17EZ Insertion of Endotracheal Airway into Trachea, Via Natural or Artificial Opening (ICD-10-PCS; 2023-07-14)
PROC: 5A1955Z Respiratory Ventilation, Greater than 96 Consecutive Hours (ICD-10-PCS; 2023-07-14)
PROC: BW21YZZ Computerized Tomography (CT Scan) of Abdomen and Pelvis using Other Contrast (ICD-10-PCS; 2023-07-15)
PROC: BW24YZZ Computerized Tomography (CT Scan) of Chest and Abdomen using Other Contrast (ICD-10-PCS; 2023-07-15)
PROC: BW21YZZ Computerized Tomography (CT Scan) of Abdomen and Pelvis using Other Contrast (ICD-10-PCS; 2023-07-20)
PROC: BW21YZZ Computerized Tomography (CT Scan) of Abdomen and Pelvis using Other Contrast (ICD-10-PCS; 2023-07-30)
PROC: 0W9G30Z Drainage of Peritoneal Cavity with Drainage Device, Percutaneous Approach (ICD-10-PCS; 2023-07-31)
PROC: BW21YZZ Computerized Tomography (CT Scan) of Abdomen and Pelvis using Other Contrast (ICD-10-PCS; 2023-08-07)
PROC: 0W9G30Z Drainage of Peritoneal Cavity with Drainage Device, Percutaneous Approach (ICD-10-PCS; 2023-08-11)
PROC: 02HV33Z Insertion of Infusion Device into Superior Vena Cava, Percutaneous Approach (ICD-10-PCS; 2023-08-12)
PROC: BW21YZZ Computerized Tomography (CT Scan) of Abdomen and Pelvis using Other Contrast (ICD-10-PCS; 2023-08-20)
DX: K57.30 Diverticulosis of large intestine without perforation or abscess without bleeding (principal); A41.9 Sepsis, unspecified organism; J15.5 Pneumonia due to Escherichia coli; J96.02 Acute respiratory failure with hypercapnia; K65.1 Peritoneal abscess; N32.1 Vesicointestinal fistula; J44.1 Chronic obstructive pulmonary disease with (acute) exacerbation; K91.89 Other postprocedural complications and disorders of digestive system; K56.7 Ileus, unspecified; E27.49 Other adrenocortical insufficiency; T81.42XA Infection following a procedure, deep incisional surgical site, initial encounter; A04.72 Enterocolitis due to Clostridium difficile, not specified as recurrent; K43.5 Parastomal hernia without obstruction or gangrene; K66.0 Peritoneal adhesions (postprocedural) (postinfection); I10 Essential (primary) hypertension; D64.9 Anemia, unspecified; E87.6 Hypokalemia; B96.20 Unspecified Escherichia coli [E. coli] as the cause of diseases classified elsewhere; B95.2 Enterococcus as the cause of diseases classified elsewhere; T38.0X1A Poisoning by glucocorticoids and synthetic analogues, accidental (unintentional), initial encounter; E09.65 Drug or chemical induced diabetes mellitus with hyperglycemia; F43.21 Adjustment disorder with depressed mood